=== PATIENT | female | born 1975 | race Caucasian/White ===

== ENCOUNTER 2021-11-27 19:35 | Emergency (ER) | payer OTHER ==
[~2021-11-27] VITALS: Ht 165.1 cm; Wt 71.2 kg
[~2021-11-27 19:35] MED LIST: SYNTHROID175 MCG PO
[2021-11-27] MEDS ORDERED: SYNTHROID125 MCG PO (19:41)
== END 2021-11-27 21:17 | disposition home or self-care (01) ==
LOC: ER 19:35
DX: R21 Rash and other nonspecific skin eruption (principal); L50.9 Urticaria, unspecified